=== PATIENT | female | born 1975 | race Caucasian/White ===

== ENCOUNTER 2018-01-05 10:16 | Outpatient (CLI) | payer OTHER | END 2018-01-05 11:03 | disposition home or self-care (01) | LOC: NST 10:16 | DX: Z34.83 Encounter for supervision of other normal pregnancy, third trimester (principal) ==

== ENCOUNTER → 2021-09-30 | Outpatient (CLI) | payer OTHER | END | disposition home or self-care (01) | LOC: MAMO-SONO 09-26 10:22 | PROVIDERS: ATTEND Obstetrics & Gynecology | DX: N60.11 Diffuse cystic mastopathy of right breast (principal) ==

== ENCOUNTER 2023-01-19 08:00 | Outpatient (CLI) | payer OTHER | END 2023-01-19 08:12 | disposition home or self-care (01) | LOC: MAMO-SONO 08:00 | PROVIDERS: ATTEND Obstetrics & Gynecology Gynecology | DX: N60.19 Diffuse cystic mastopathy of unspecified breast (principal); N60.12 Diffuse cystic mastopathy of left breast; N60.11 Diffuse cystic mastopathy of right breast; Z12.31 Encounter for screening mammogram for malignant neoplasm of breast; N83.292 Other ovarian cyst, left side; N83.291 Other ovarian cyst, right side; N91.4 Secondary oligomenorrhea; Z80.3 Family history of malignant neoplasm of breast ==

== ENCOUNTER 2024-11-17 07:54 | Outpatient (CLI) | payer OTHER ==
[~2024-11-17 07:54] MED LIST: FLONASE16 GM NASAL; PRENATAL 19 TA1 EACH PO; ZANTAC 7575 MG PO
== END 2024-11-17 08:14 | disposition home or self-care (01) ==
LOC: MAMO-SONO 07:54
PROVIDERS: ATTEND Specialist
DX: Z12.39 Encounter for other screening for malignant neoplasm of breast (principal); Z12.31 Encounter for screening mammogram for malignant neoplasm of breast; R22.1 Localized swelling, mass and lump, neck; J32.0 Chronic maxillary sinusitis